=== PATIENT | female | born 1980 | race Caucasian/White ===

== ENCOUNTER 2017-11-10 18:25 | Inpatient (IN) | payer OTHER ==
[2017-11-10] MEDS ORDERED: DEXTROSE 5%-LACTATED RINGERS 1,000 ML IV SCH (21:00)
[2017-11-10] MEDS ORDERED: TUBERCULIN PPD 5 TU/0.1ML SYRINGE (IN PATIENT USE ONLY) ID ONE (21:01)
[2017-11-10 21:54] LABS: BASO % 0.3 % (0-2.0); EOS % 0.7 % (0-4.5); HEMATOCRIT 37.1 % (32.4-45.2); HEMOGLOBIN 12.5 GM/dL (10.7-15.3); LYMPH % 22.9 % (8-40); MCH 29.8 pg (25.7-33.7); MCHC 33.6 g/dl (32.0-36.0); MEAN CELL VOLUME 88.7 fl (80-96); MONO % 8.9 % (3.8-10.2); NEUT % 67.2 % (42.8-82.8); PLATELET COUNT 108 K/MM3 (134-434); RBC 4.18 M/mm3 (3.60-5.2); RDW 14.9 % (11.6-15.6); WHITE BLOOD COUNT 6.3 K/mm3 (4.0-10.0)
[2017-11-10 22:35] LABS: ACTIVATED PTT 23.4 SECONDS (26.9-34.4); INR 0.96 (0.82-1.09); PROTHROMBIN TIME (PATIENT) 10.8 SEC (9.7-13.0)
[2017-11-10 22:54] LABS: ANION GAP 7 (8-16); BLOOD UREA NITROGEN 10 mg/dL (7-18); CALCIUM 8.9 mg/dL (8.5-10.1); CHLORIDE 107 mmol/L (98-107); CO2 24 mmol/L (21-32); CREATININE 0.7 mg/dL (0.55-1.02); GLUCOSE,RANDOM 95 mg/dL (74-106); POTASSIUM 4.6 mmol/L (3.5-5.1); SODIUM 138 mmol/L (136-145)
[2017-11-10 22:59] VITALS: BMI 29.9
[2017-11-11] MEDS ORDERED: CITRIC ACID/SODIUM CITRATE 30 ML UNIT-DOSE CUP PO ONE ×2 (04:00→08:01)
[2017-11-11] MEDS ORDERED: ELECTROLYTE-148 SOLN 500 ML IV ONE ×2 (04:00→04:30)
[2017-11-11] MEDS ORDERED: ONDANSETRON 4 MG/2 ML VIAL IVPUSH PRN (07:24)
[2017-11-11] MEDS ORDERED: morphine SULFATE/Preservative Free 0.5 MG/ML (1cc Syringe) EP ONE (07:24)
[2017-11-11] MEDS ORDERED: OXYTOCIN 20 UNITS in 0.9% NS 20 UNIT/1,000 ML INFUS.BAG IV ONE (07:38)
[2017-11-11] MEDS ORDERED: ceFAZolin SODIUM 1 GM VIAL ONE (07:41)
--- NOTE | 2017-11-11 08:04 | HP ---
Past Medical History - Admission Chief Complaint: Labor pain History of Present Illness: 37 yo @ 38 weeks gestation with h/o Chronic hypertension and gestational diabetes, admitted for labor pain. She had 2 previous C-Sections. She 's pre op for repeat and bilateral tubal ligation as consent was previously signed. History Source: Patient - Past Medical History ...: 4 ...Para: 2 ...Term: 1 ...: 1 ...Spon : 1 ...Induced : 0 ...Multiple Gestation: 0 ...LMP: 02/17/17 ... Weeks Gestation by Dates: 37.2 ...EDC by Dates: 11/29/17 ...EDC by Sono: 11/24/17 - Past Surgical History Past Surgical History: Yes: Hx Myomectomy: No Hx Transabdominal Cerclage: No - Smoking History Smoking history: Never smoked Have you smoked in the past 12 months: No - Alcohol/Substance Use Hx Alcohol Use: No Home Medications - Allergies Allergies/Adverse Reactions: Allergies Allergy/AdvReac Type Severity Reaction Status Date / Time No Known Allergies Allergy Verified 11/10/17 19:22 - Home Medications Home Medications: Ambulatory Orders Aspirin [[place] Aspirin] 81 mg PO DAILY 11/10/17 Labetalol HCl 200 mg PO DAILY 11/10/17 Vit 108/Iron/Folic AC [ One Tablet] 1 each PO DAILY 11/10/17 Family Disease History - Family Disease History Family History: Unremarkable Review of Systems - Review of Systems Constitutional: reports: No Symptoms Eyes: reports: No Symptoms HENT: reports: No Symptoms Neck: reports: No Symptoms Cardiovascular: reports: No Symptoms Respiratory: reports: No Symptoms Gastrointestinal: reports: No Symptoms Genitourinary: reports: Pain Breasts: reports: No Symptoms Reported Musculoskeletal: reports: No Symptoms Integumentary: reports: No Symptoms Neurological: reports: No Symptoms Endocrine: reports: No Symptoms Hematology/Lymphatic: reports: No Symptoms Psychiatric: reports: No Symptoms Pain Intensity: 7 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 - Maternity Vital Signs: Vital Signs Temperature 98.2 F 11/11/17 05:50 Pulse Rate 94 H 11/11/17 05:50 Respiratory Rate 20 11/11/17 05:50 Blood Pressure 124/94 11/11/17 05:50 O2 Sat by Pulse Oximetry (%) Constitutional: Yes: Well Nourished Eyes: Yes: Conjunctiva Clear HENT: Yes: Atraumatic Neck: Yes: Supple Cardiovascular: Yes: Regular Rate and Rhythm Lungs: Clear to auscultation - Abdominal Exam/OB Number of Fetuses: Single Presentation: Vertex - Vaginal Exam/OB Vaginal Bleediing: No Presentation: Vertex/Position - 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 Musculoskeletal: Yes: WNL Extremities: Yes: WNL ...Motor Strength: WNL Psychiatric: Yes: Alert, Oriented - Labs Lab Results: CBC, BMP 11/10/17 21:55 11/10/17 22:30 Problem List - Problems (1) Previous section complicating , antepartum condition or complication Code(s): O34.219 - MATERNAL CARE FOR UNSP TYPE SCAR FROM PREVIOUS DEL (2) Status post repeat low transverse section Code(s): Z98.891 - HISTORY OF UTERINE SCAR FROM PREVIOUS SURGERY Assessment/Plan Previous in labor Chronic hypertension Pre op for repeat and BTL Consent signed Anesthesia to see patient
[2017-11-11] MEDS ORDERED: ePHEDrine SULFATE 50 MG/1 ML AMPULE ONE (08:09)
[2017-11-11] MEDS ORDERED: SODIUM CHLORIDE 0.9% P/F 10 ML VIAL IJ ONE (08:10)
[2017-11-11] MEDS ORDERED: OXYTOCIN 10 UNITS/ML VIAL ONE (08:15)
[2017-11-11] MEDS ORDERED: MIDAZOLAM HCL 2 MG/2 ML SINGLE DOSE VIAL ONE (08:23)
[2017-11-11] MEDS ORDERED: KETOROLAC TROMETHAMINE 30 MG/1 ML VIAL ONE (08:27)
[2017-11-11] MEDS ORDERED: hydrALAZINE HCL 20 MG/ML VIAL ONE (08:51)
[2017-11-11 08:53] LABS: ARTERIAL BLD GAS O2 SATURATION 11.7 % (90-98.9); ARTERIAL BLOOD GAS BASE EXCESS -1.6 meq/l (-2-2); ARTERIAL BLOOD GAS PO2 11.1 mmHg (80-100)
[2017-11-11] MEDS ORDERED: METHYLERGONOVINE MALEATE 0.2 MG/1 ML AMP IM PRN (08:58)
[2017-11-11 09:00] LABS: VENOUS PH 7.37 (7.32-7.42); VENOUS PO2 21.3 mmHg (28-48)
[2017-11-11] MEDS ORDERED: OXYTOCIN 20 UNITS in 0.9% NS 20 UNIT/1,000 ML INFUS.BAG IV SCH (09:00)
--- NOTE | 2017-11-11 09:03 | OP ---
Operative Note - Note: Operative Date: 11/11/17 Pre-Operative Diagnosis: Previous in labor / Multiparity Operation: Repeat Low Transverse / Bilateral tubal ligation Post-Operative Diagnosis: Same as Pre-op Surgeon: Georgina Pennington Brush Cutter: Henry Desouza Anesthesia: Spinal Specimens Removed: Placenta Estimated Blood Loss (mls): 600
[2017-11-11] MEDS ORDERED: IBUPROFEN 800 MG/8 ML IJ IVPB ONE (09:26)
[2017-11-11] MEDS: IBUPROFEN 800 MG/8 ML IJ IVPB PRN ×2 (09:30→21:57)
[2017-11-11] MEDS: FERROUS SO4 325 MG TABLET (FP) PO SCH ×2 (09:42→22:53)
[2017-11-11] MEDS ORDERED: LABETALOL HCL 100 MG TABLET (FP) ONE (10:14)
[2017-11-11] MEDS: LABETALOL HCL 100 MG TABLET (FP) PO SCH ×2 (10:15→22:00)
[2017-11-11] MEDS: PRENATAL VITAMINS W/ FOLIC ACID TABLET (FP) PO SCH (10:20)
[2017-11-12] MEDS: IBUPROFEN 800 MG/8 ML IJ IVPB PRN (05:23)
--- NOTE | 2017-11-12 06:51 | PN ---
Post Progress Note - Subjective Subjective: Pt seen/evaluated, doing well. No complaints. Tolerating clears. Rios catheter draining clear yellow urine. Denies CP/SOB/F/C/[place]. Type of Delivery: Repeat C/S Vital Signs: Vital Signs Temperature 98.2 F 11/12/17 05:22 Pulse Rate 68 11/12/17 05:22 Respiratory Rate 20 11/12/17 05:53 Blood Pressure 125/78 11/12/17 05:22 O2 Sat by Pulse Oximetry (%) 100 11/11/17 10:00 Uterus: Yes: Fundus Firm, Fundus below umbilicus Incision: Yes: Dressing dry and intact Abdomen/GI: Yes: Abdomen soft, Tender (appropriately tender post op), Tolerating PO (clears). No: Passing flatus Lochia: Yes: Rubra Lochia, amount: Moderate Extremities: Yes: Calves non-tender Perineum: Yes: Intact Activity: Ambulating - Labs Labs: CBC WBC 6.3 K/mm3 (4.0-10.0) 11/10/17 21:55 RBC 4.18 M/mm3 (3.60-5.2) 11/10/17 21:55 Hgb 12.5 GM/dL (10.7-15.3) 11/10/17 21:55 Hct 37.1 % (32.4-45.2) 11/10/17 21:55 MCV 88.7 fl (80-96) 11/10/17 21:55 MCH 29.8 pg (25.7-33.7) 11/10/17 21:55 MCHC 33.6 g/dl (32.0-36.0) 11/10/17 21:55 RDW 14.9 % (11.6-15.6) 11/10/17 21:55 Plt Count 108 K/MM3 (134-434) L 11/10/17 21:55 MPV 12.0 fl (7.5-11.1) H 11/10/17 21:55 Absolute Neuts (auto) 4.3 # 11/10/17 21:55 Neutrophils % 67.2 % (42.8-82.8) 11/10/17 21:55 Lymphocytes % 22.9 % (8-40) 11/10/17 21:55 Monocytes % 8.9 % (3.8-10.2) 11/10/17 21:55 Eosinophils % 0.7 % (0-4.5) 11/10/17 21:55 Basophils % 0.3 % (0-2.0) 11/10/17 21:55 Nucleated RBC % 0 % (0-0) 11/10/17 21:55 Problem List - Problems (1) Status post repeat low transverse section Code(s): Z98.891 - HISTORY OF UTERINE SCAR FROM PREVIOUS SURGERY Assessment/Plan 37 y/o POD#1 s/p delivery (repeat) AFVSS CBC pending moderate lochia, continue to monitor remove rios cather encourage ambulation routine care
--- NOTE | 2017-11-12 08:12 | PN ---
Progress Note (short form) - Note Progress Note: Anesthesia POD#1 S/P under Spinal and DUramorph. VSS, no N/V,pain is bearable. Legs are strong. A/P No complications to anesthesia seen. Ana Paula Juarez MD.
[2017-11-12 08:50] LABS: BASO % 0.2 % (0-2.0); EOS % 0.2 % (0-4.5); HEMATOCRIT 34.4 % (32.4-45.2); HEMOGLOBIN 11.7 GM/dL (10.7-15.3); LYMPH % 12.1 % (8-40); MCH 30.3 pg (25.7-33.7); MCHC 34.1 g/dl (32.0-36.0); MEAN CELL VOLUME 88.7 fl (80-96); MEAN PLT VOLUME 11.3 fl (7.5-11.1); MONO % 5.7 % (3.8-10.2); NEUT % 81.8 % (42.8-82.8); PLATELET COUNT 99 K/MM3 (134-434); RBC 3.88 M/mm3 (3.60-5.2); WHITE BLOOD COUNT 9.4 K/mm3 (4.0-10.0)
[2017-11-12] MEDS ORDERED: BISACODYL 10 MG SUPP.RECT RC PRN (08:58)
[2017-11-12] MEDS: LABETALOL HCL 100 MG TABLET (FP) PO SCH ×2 (10:07→21:54)
[2017-11-12] MEDS: FERROUS SO4 325 MG TABLET (FP) PO SCH ×2 (10:07→21:54)
[2017-11-12] MEDS: PRENATAL VITAMINS W/ FOLIC ACID TABLET (FP) PO SCH (10:07)
[2017-11-12] MEDS: SIMETHICONE 80 MG TAB.CHEW (FP) PO PRN ×2 (15:38→19:38)
[2017-11-12] MEDS: oxyCODONE HCL 5 MG TABLET PO PRN ×2 (15:38→19:38)
[2017-11-12] MEDS: IBUPROFEN 600 MG TABLET (FP) PO PRN ×2 (15:38→19:39)
[2017-11-13] MEDS: SIMETHICONE 80 MG TAB.CHEW (FP) PO PRN ×3 (02:16→21:07)
[2017-11-13] MEDS: IBUPROFEN 600 MG TABLET (FP) PO PRN ×3 (02:17→21:07)
[2017-11-13] MEDS: oxyCODONE HCL 5 MG TABLET PO PRN ×3 (02:17→21:08)
[2017-11-13] MEDS: FERROUS SO4 325 MG TABLET (FP) PO SCH ×2 (09:06→21:03)
[2017-11-13] MEDS: LABETALOL HCL 100 MG TABLET (FP) PO SCH ×2 (09:06→21:03)
[2017-11-13] MEDS: PRENATAL VITAMINS W/ FOLIC ACID TABLET (FP) PO SCH (09:06)
--- NOTE | 2017-11-13 11:30 | PN ---
Post Note - Post Date of Delivery: 11/11/17 Post Day: 2 Vital Signs: Vital Signs - 24 hr 11/12/17 11/12/17 11/12/17 13:30 18:00 21:51 Temperature 98.5 F 98.1 F Pulse Rate 73 72 71 Respiratory 20 20 18 Rate Blood Pressure 111/66 116/69 111/69 11/13/17 09:30 Temperature 98.1 F Pulse Rate 68 Respiratory 20 Rate Blood Pressure 122/75 - Subjective Subjective: No Complaints - Objective Afebrile: No Breast: Not engorged Abdomen: Soft, Non-tender Uterus: Fundus firm, Non-tender Vagina: Scant lochia Extremities: Non-tender - Assessment/Plan (1) Status post repeat low transverse section Assessment: Other (POStop CS) Plan: Routine Care
--- NOTE | 2017-11-14 06:18 | DS ---
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 Vital Signs: Vital Signs Temperature 99.0 F 11/13/17 21:02 Pulse Rate 79 11/13/17 21:02 Respiratory Rate 20 11/13/17 21:02 Blood Pressure 122/77 11/13/17 21:02 O2 Sat by Pulse Oximetry (%) 100 11/11/17 10:00 Constitutional: Yes: Well Nourished Eyes: Yes: Conjunctiva Clear HENT: Yes: Atraumatic Neck: Yes: Supple Cardiovascular: Yes: Regular Rate and Rhythm Respiratory: Yes: Regular Gastrointestinal: Yes: Normal Bowel Sounds External Genitalia: Yes: Normal Vaginal Exam: Yes: Normal Cervix: Yes: Normal Uterus: Yes: Firm Breast(s): Yes: WNL Extremities: Yes: WNL Neurological: Yes: Alert, Oriented ...Motor Strength: WNL Psychiatric: Yes: Alert, Oriented Labs: CBC, BMP 11/12/17 08:15 11/10/17 22:30 Delivery - Delivery Type of Anesthesia: Spinal EBL (cc): 600 Delivery, Single - Stages of Labor Date 1st Stage Initiatied: 11/10/17 Date of Delivery: 11/11/17 Time of Delivery: 08:16 Time Placenta Delivered: 08:17 - Condition of Manager Card/Process Developer Present: Yes Name: Eileen Theodore Gender: Male Weight: 7 lb 7 oz Total Hours ROM (Hrs/Mins): 2 minutes - 1 Minute Total Score: 9 5 Minutes Total Score: 9 - [place] Feeding Plan Initial Plan: Elected not to breastfeed exclusively throughout hospitalization Discharge Summary Reason For Visit: ADMIT-C/S Current Active Problems Previous section complicating , antepartum condition or complication (Acute) Status post repeat low transverse section (Acute) Procedures: Principal: Repeat Low Transverse Hospital Course: Routine Post op care Condition: Good - Instructions Diet, Activity, Other Instructions: Regular diet No driving, no lifting x 4 weeks F/U with MD in 1 week Referrals: Georgina Pennington MD [Staff Physician] - Disposition: HOME - Home Medications Comprehensive Discharge Medication List: Ambulatory Orders Aspirin [[place] Aspirin] 81 mg PO DAILY 11/10/17 Labetalol HCl 200 mg PO DAILY 11/10/17 Vit 108/Iron/Folic AC [ One Tablet] 1 each PO DAILY 11/10/17
[2017-11-14 07:19] LABS: BASO % 0.6 % (0-2.0); EOS % 2.4 % (0-4.5); HEMATOCRIT 26.9 % (32.4-45.2); HEMOGLOBIN 9.3 GM/dL (10.7-15.3); LYMPH % 22.4 % (8-40); MCH 30.5 pg (25.7-33.7); MCHC 34.7 g/dl (32.0-36.0); MEAN PLT VOLUME 10.5 fl (7.5-11.1); MONO % 6.9 % (3.8-10.2); NEUT % 67.7 % (42.8-82.8); PLATELET COUNT 118 K/MM3 (134-434); RBC 3.06 M/mm3 (3.60-5.2); RDW 14.6 % (11.6-15.6); WHITE BLOOD COUNT 6.9 K/mm3 (4.0-10.0)
[2017-11-14 08:27] VITALS: BP 129/81; PULSE 68; TEMP 98.6
[2017-11-14] MEDS: FERROUS SO4 325 MG TABLET (FP) PO SCH (09:14)
[2017-11-14] MEDS: LABETALOL HCL 100 MG TABLET (FP) PO SCH (09:14)
[2017-11-14] MEDS: PRENATAL VITAMINS W/ FOLIC ACID TABLET (FP) PO SCH (09:14)
[2017-11-14] MEDS: SIMETHICONE 80 MG TAB.CHEW (FP) PO PRN (09:17)
[2017-11-14] MEDS: IBUPROFEN 600 MG TABLET (FP) PO PRN (09:18)
[2017-11-14] MEDS: oxyCODONE HCL 5 MG TABLET PO PRN (09:18)
--- NOTE | 2017-11-16 13:24 | PATH ---
Surgical Pathology Report Patient Name: OSMAR VENTURA [facility]. Rec. 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 Specimen(s) Received A: PLACENTA B: RIGHT FALLOPIAN TUBE C: LEFT FALLOPIAN TUBE Clinical History 4 para 2, history of chronic hypertension, section x2 Final Diagnosis A. PLACENTA: THIRD TRIMESTER PLACENTA. TRIVASCULAR CORD. MEMBRANES WITH NO DIAGNOSTIC ABNORMALITIES. B. RIGHT PORTION OF FALLOPIAN TUBE: COMPLETE CROSS SECTION OF THE FALLOPIAN TUBE IDENTIFIED. C. LEFT PORTION OF FALLOPIAN TUBE: COMPLETE CROSS SECTION OF THE FALLOPIAN TUBE IDENTIFIED. Electronically Signed Paulie Jones M.D. Gross Description A. The specimen is received fresh labeled "placenta" and is a 609 gram, 19 x 16 x 3 cm. placenta with attached membranes and umbilical cord. The attached membranes are glistening and translucent and insert in a circummarginate matter cross one quarter of the placental disc, up to 2 cm from the placental margin. The umbilical cord measures 22 cm. in length and averages 1 cm. in diameter. The cord inserts marginally. No true knots or strictures are identified. Cut surface of the umbilical cord reveals 3 vessels. The surface is jett-blue with minimal fibrin deposition and appropriate caliber vessels. The maternal surface is red-brown with focal defects. Sectioning reveals red-brown, spongy parenchyma. No lesions are identified. Internal Security Manager sections are submitted in three cassettes as follows: 1- membrane rolls and umbilical cord; 2-3- full thickness sections of placenta. B. Received fresh labelled "right portion fallopian tube" is a 1.5 cm long by 0.5 cm in diameter portion of tissue consistent with a portion of fallopian tube. The fimbriated end is not identified. No focal lesions are identified. Sectioned and totally submitted in one cassette. C. Received fresh labelled "left portion fallopian tube" is a 1.4 cm long by 0.6 cm in diameter portion of tissue consistent with a portion of fallopian tube. The fimbriated end is not identified. No focal lesions are identified. Sectioned and totally submitted in one cassette. [facility]/11/12/2017 [facility]/11/12/2017
== END 2017-11-14 17:00 | disposition home or self-care (01) | DRG 540 ==
LOC: JLDR 18:25 → UNDOADMIN 18:25 → JDEL 18:25 → EDSTATUS 19:11 → JLDR 21:10 → J3W 11-11 11:58
PROVIDERS: ADMIT Obstetrics & Gynecology; ATTEND Obstetrics & Gynecology
PROC: 10D00Z1 Extraction of Products of Conception, Low, Open Approach (ICD-10-PCS; principal; 2017-11-11)
PROC: 0UL70ZZ Occlusion of Bilateral Fallopian Tubes, Open Approach (ICD-10-PCS; 2017-11-11)
DX: O34.211 Maternal care for low transverse scar from previous cesarean delivery (principal); O16.4 Unspecified maternal hypertension, complicating childbirth; Z3A.38 38 weeks gestation of pregnancy; Z37.0 Single live birth; Z30.2 Encounter for sterilization
CPT/HCPCS: 36415; 36600; 59025; 80048; 82803; 85025; 85610; 85730; 86593; 86850; 86900; 86901; 87389; 88302-TC; 88307-TC